=== PATIENT | male | born 1985 | race Caucasian/White ===

== ENCOUNTER 2020-01-24 17:51 | Emergency (ER) | payer OTHER ==
[~2020-01-24] VITALS: Ht 180.3 cm; Wt 83.9 kg
--- NOTE | 2020-01-24 17:51 | NUR ---
RECEIVED AND IN ROOM 7. RODOLFO TO ASSUME CARE
[2020-01-24 17:56] VITALS: BP_SYST 150
[2020-01-24] MEDS ORDERED: AMOXICILLIN 500 MG CAPSULE PO ONE (18:00)
[2020-01-24] MEDS ORDERED: IBUPROFEN 800 MG TABLET PO ONE (18:00)
--- NOTE | 2020-01-24 18:00 | NUR ---
DR FALLON IN TO ASSESS
--- NOTE | 2020-01-24 18:10 | NUR ---
CALM, ALERT, RESP UNLABORED, SKIN WARM AND DRY. PT IN GOOD SPIRITS, DENIES SI/HI. COMMUNICATES EFFECTIVELY. FULL COMPLETE SENTENCES. STATED HE FEELS SAFE AND WILL REMAIN IN ER. TOLD TO ASK FOR HELP IF ANY CONCERNS
--- NOTE | 2020-01-24 18:52 | NUR ---
MEAL PROVIDED, TOLERATING WELL
[2020-01-24 19:16] VITALS: BP_SYST 150
--- NOTE | 2020-01-24 19:19 | NUR ---
Patient given written and verbal discharge instructions and verbalizes understanding. ER MD discussed with patient the results and treatment provided. Patient in stable condition. Rx of AMOXICILLIN given. Patient educated on pain management and to follow up with PMD. Pain Scale 0/10 Opportunity for questions provided and answered. Medication side effect fact sheet provided.
--- NOTE | 2020-01-24 19:23 | NUR ---
Patient to be transferred to [facility]. Report called to SHALOM at receiving facility. EMT RECEIVED ambulance service has been called for transfer. CALM, AND COOPERATIVE
== END 2020-01-24 19:16 | disposition home or self-care (01) ==
LOC: SED 17:51
DX: K04.7 Periapical abscess without sinus (principal)
CPT/HCPCS: 99283